=== PATIENT | female | born 2000 | race Caucasian/White ===

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

== ENCOUNTER 2019-08-18 13:06 | Emergency (ER) | payer BC, OTHER | END 2019-08-18 13:49 | disposition left against medical advice (07) | LOC: ER 13:06 | DX: R10.9 Unspecified abdominal pain (principal); Z53.21 Procedure and treatment not carried out due to patient leaving prior to being seen by health care provider ==